=== PATIENT | male | born 1955 | race Caucasian/White ===

== ENCOUNTER 2018-10-21 13:13 | Emergency (ER) | payer SELFPAY ==
[~2018-10-21 13:13] MED LIST: ISOVUE-370 76%-LOCM 1 ML ONE
[2018-10-21] MEDS ORDERED: Propofol 1,000 MG/100 ML VIAL IV ONE (13:24)
[2018-10-21] MEDS ORDERED: Adacel (T-DAP) 0.5 ML SYRINGE ONE ×2 (13:25→13:28)
[2018-10-21] MEDS ORDERED: CEFAZOLIN 1 GM VIAL ONE (13:25)
[2018-10-21 13:30] LABS: Hemoglobin 15.1 g/dL (14.0-18.0); Mean Corpuscular HGB CONC 34.5 g/dL (32.0-36.0); Mean Corpuscular Hemoglobin 31.5 pg (27.0-31.0); Mean Corpuscular Volume 91.3 fL (78.0-98.0); Mean Platelet Volume 7.9 fL (7.4-10.4); Platelet Count 371 thou/uL (130-400); RBC Distribution Width 12.1 % (11.5-14.5); Red Blood Cell (RBC) Count 4.79 mill/uL (4.70-6.10)
[2018-10-21] MEDS ORDERED: Gentamicin 80 MG/2 ML VIAL ONE (13:30)
[2018-10-21 13:36] LABS: PTT 23.8 SEC (22.9-36.1); Prothrombin Time 13.3 SEC (12.0-14.7)
[2018-10-21] MEDS ORDERED: Fentanyl 100 MCG/2 ML VIAL ONE ×2 (13:39→14:04)
[2018-10-21 13:46] LABS: Band 11 % (5-11); Eosinophils 2 % (0-10); Lymphocytes 14 % (21-51); MDiff Complete? YES; Monocytes 6 % (0-10); Neutrophil 67 % (42-75); Platelet Morphology Comment Appears Adequate; RBC Morphology Normal
[2018-10-21 13:49] LABS: ALT (SGPT) 21 U/L (8-55); AST (SGOT) 20 U/L (5-34); Albumin 4.2 g/dL (3.4-4.8); Alkaline Phosphatase 74 U/L (40-150); Anion Gap 21 mmol/L (10-20); BUN (Urea Nitrogen) 17 mg/dL (8.4-25.7); Bilirubin, Total 0.7 mg/dL (0.2-1.2); Calc. Creatinine Clearance 0 mL/min (70-130); Calcium 9.8 mg/dL (7.8-10.44); Carbon Dioxide 16 mmol/L (23-31); Chloride 103 mmol/L (98-107); Estimated GFR-MDRD 46; Globulin 3.5 g/dL (2.4-3.5); Glucose 148 mg/dL (80-115); Potassium 4.3 mmol/L (3.5-5.1); Protein, Total 7.7 g/dL (5.8-8.1); Sodium 136 mmol/L (136-145)
--- NOTE | 2018-10-21 14:06 | RAD ---
XR Tib Fib Lt Leg 2 View INDICATION: Foreleg pain and injury FINDINGS: Bones: There is a comminuted, mildly displaced distal fibular shaft fracture with displacement of the distal fracture fragment medially 1 cortex width Joints: No acute abnormality. Soft tissues: There is soft tissue gas seen surrounding the distal left foreleg suspicious for an ope n injury and/or laceration IMPRESSION: Comminuted, mildly displaced distal fibular shaft fracture with extensive soft tissue gas surrounding the soft tissues of the distal left foreleg possibly related to laceration or open injury.
[2018-10-21] MEDS ORDERED: Vecuronium 10 MG VIAL ONE (14:07)
[2018-10-21] MEDS ORDERED: Rocuronium Bromide 10 MG/ML (10ML VIAL) ONE ×2 (14:07→16:48)
--- NOTE | 2018-10-21 14:10 | RAD ---
Chest AP view INDICATION: Level 1 trauma; large tree fell on left lower extremity with obvious deformity COMPARISON: None FINDINGS: Lungs:The lungs are clear Cardiac silhouette pulmonary vasculature:The cardiomediastinal silhouette appears within normal limit s. Pleural spaces:No pleural effusion or pneumothorax is demonstrated. Upper abdomen:Gastric catheter projecting the region of the gastric fundus Osseous structures: No acute osseous abnormality. Additional findings:ET tube tip is seen 3 cm from the level of the trixie. IMPRESSION: No acute cardiac pulmonary abnormality. ET tube and gastric catheter as above
--- NOTE | 2018-10-21 14:12 | RAD ---
AP view of the pelvis INDICATION: Level 1 trauma; tree fell on patient's left lower extremity COMPARISON: None. FINDINGS: Bones: No acute fracture or subluxation is evident. Bone mineralization appears within normal limits. Hips: Intact. SI joints and symphysis pubis: Normal appearing. Intrapelvic contents: Within normal limits. IMPRESSION: No acute osseous abnormality.
--- NOTE | 2018-10-21 14:20 | CT ---
CT BRAIN WITHOUT CONTRAST: Date: 10/21/18 HISTORY: Level I trauma. FINDINGS: No evidence of acute infarct, hemorrhage, midline shift, or abnormal extra-axial fluid collections ar e seen. There are changes of chronic small vessel ischemic disease in the periventricular white matte r. The ventricular size is appropriate and the basilar cisterns are patent. The bony calvarium is int act. There is mucosal disease in the paranasal sinuses. IMPRESSION: No CT evidence of acute intracranial process. Discussed over the telephone with ER physician, Dr. Rohan Nevarez, at 1402 hours. CODE CR. POS: [facility]
--- NOTE | 2018-10-21 14:20 | RAD ---
XR Foot Lt 2 View INDICATION: Level 1 trauma; tree fell on left lower extremity with obvious deformity COMPARISON: None. FINDINGS: Bones: There is a heavily comminuted fractures involving the base and shaft of the great toe metatars al extending into the Lisfranc joint. There is comminuted displaced fractures involving the cuneiforms. Joints: There is extensive fracture comminution and displacement centered around the Lisfranc joint. Lisfranc alignment: Malalignment. There is prominent dorsal angulation involving the comminuted fract ures of the mid foot. Soft tissues: There is extensive soft tissue gas involving the dorsal plantar aspect of the foot as w ell as the soft tissues of the distal foreleg suspicious for extensive laceration and injury IMPRESSION: Heavily comminuted left mid foot and forefoot fracture with extensive soft tissue injury. A CT of the left foot may be helpful for full delineation of the fractured bones within the left foot.
--- NOTE | 2018-10-21 14:22 | CT ---
CT CERVICAL SPINE WITH CORONAL AND SAGITTAL REFORMATIONS: Date: 10/21/18 HISTORY: Level I trauma. FINDINGS: Degenerative changes are seen, most prominent at C5-6 and C6-7 levels. No fracture, subluxation, or facet malalignment is seen. Endotracheal and nasogastric tubes are prese nt. This precludes satisfactory evaluation for prevertebral soft tissue swelling. Discussed over the telephone with ER physician, Dr. Rohan Nevarez, at 1407 hours. CODE CR. POS: [facility]
--- NOTE | 2018-10-21 14:30 | RAD ---
LEFT FEMUR 1 VIEW: Date: 10/21/18 HISTORY: Trauma, left lower extremity pain. FINDINGS/IMPRESSION: No definite bony abnormality is seen on this single view of the left femur. In the setting of trauma, at least 2 views should be obtained. POS: [facility]
--- NOTE | 2018-10-21 14:47 | CT ---
EXAM: CTA Angio Lwr Ext Lt W WO DATE: 10/21/2018 1:39 PM INDICATION: Level 1 trauma; tree fell on left foot with extensive left lower extremity injury COMPARISON: None. FINDIND reformatted images were constructed from the raw data. There is extensive soft tissue injury involving the posterior medial aspect of the mid to distal left foreleg with extensive soft tissue gas seen along the posterior medial aspect of the foreleg, anterior aspect of the distal foreleg as well as the dorsal and plantar aspects of the foot. There is complete occlusion of the posterior tibial artery at the level of the distal tibia, just abo ve the tibiotalar joint, with reconstitution seen just beyond the flexor retinaculum likely through collaterals from the peroneal artery. The anterior tibial artery is occluded distally, just above the level of the tibiotalar joint, withou t reconstitution of flow seen in the dorsalis pedis. The peroneal artery remains patent throughout its visualized course. There are heavily comminuted left foot fractures with extensive comminuted and displaced fractures in volving the middle cuneiform, lateral cuneiform and cuboid. There is a medially displaced proximal medial cuneiform fracture. There is a divergent type Lisfranc dislocation. There is a spiral comminuted fracture involving the great toe metatarsal shaft and proximal metaphysi s. There is a nondisplaced comminuted fourth metatarsal base fracture. There is a comminuted fracture involving the plantar base of the second and third metatarsal shafts. There is a comminuted mildly displaced medial navicular fracture. The calcaneus and talus are intact. The distal tibia appears intact. There is a partially visualized comminuted distal left fibular shaft fracture. IMPRESSION: 1. Complete occlusion of the distal right posterior tibial artery and right anterior tibial artery ju st above the ankle joint. There is reconstitution of flow within the right posterior tibial artery just distal to the flexor retinaculum. The peroneal artery appears patent. 2. Extensive midfoot and forefoot fractures with an eversion type Lisfranc dislocation. Distal fibula r shaft fracture. 3. Extensive soft tissue injury to the foreleg and foot. 4. Findings were called to Dr. Garza at 2:35 PM on October 21, 2018.
[2018-10-21 14:54] LABS: Actual Bicarbonate (HCO3a) 19.8 mEq/L (22-28); Base Excess (BEa) -5.5 mEq/L (-2.0 to +3.0); CO2 Tension 38.2 mmHg (35.0-45.0); Carboxyhemoglobin (COHb) 0.8 gm% (0.0-3.0); Hemoglobin (Hb) 13.6 g/dL (14.0-18.0); O2 Tension (PaO2) 115.9 mmHg (> 80.0); pH, Arterial 7.33 (7.35-7.45)
[2018-10-21 14:55] LABS: Analyzer IN Cardio ER; Calcium, Ionized 1.13 mmol/L (1.12-1.30); Potassium - ABG Lab 3.77 mmol/L (3.70-5.30); Puncture Site RRA
[2018-10-21] MEDS ORDERED: fentaNYL Citrate/PF 2,000 MCG in Sodium Chloride 0.9% 60 ML IV SCH (15:10)
--- NOTE | 2018-10-21 16:26 | HP ---
HISTORY OF PRESENT ILLNESS: This is a 63-year-old man, who was cutting down a tree post, which fell, landing to his left leg. The patient was temporarily pinned under the weight of the falling tree. He suffered no trauma to his head, chest, or abdomen. He suffered no loss of consciousness. Following extrication, the patient was transported by ground EMS to [facility] in [place], [place]. The patient had extensive deformity to the left [id number] leg with significant amount of soft tissue deformities. There was reportedly large amount of blood loss at the scene. Proximal tourniquet was applied by transport and EMS. The patient had received some ketamine and intravenous analgesics en route. Upon arrival to the emergency department, the patient was initially noted with [place] Coma Scale of 15, but became quite agitated and thrashing about with pain. It became necessary to electively intubate him to control his airway. His intubation was accomplished by the emergency medicine personnel. The patient received 20 mg of etomidate and 70 mg of rocuronium for intubation. At the time of my evaluation, the patient is now sedated on mechanical ventilator support. The tourniquet was removed. There was no active arterial bleeding at the wound sites. The patient had no other markers of trauma about his head, neck, torso, or spine. I will eventually speak with the patient's , who arrived shortly after initiation of the workup. PAST MEDICAL HISTORY: Unremarkable except for mild hypertension according to the patient's , for which the patient seeks no treatment. PAST SURGICAL HISTORY: He has had no major surgeries. SOCIAL HISTORY: He is , lives at home with his . He has no cigarette smoking or illicit drug abuse. He has occasionally consumed moderate amount of ethanol, that is actually in rare occasions according to the patient's . FAMILY HISTORY: The patient has no family history of diabetes mellitus, hypertension, heart disease, or cancer. PRE-HOSPITAL MEDICATION: None. ALLERGIES: THE PATIENT HAS NO KNOWN DRUG ALLERGIES. REVIEW OF SYSTEMS: Could not be obtained. The patient is sedated, pharmacologically paralyzed, on mechanical ventilator support. PHYSICAL EXAMINATION: GENERAL: This reveals a 63-year-old normally developed man, who is otherwise sedated. He was in no extremist, however, intubated for airway protection and to facilitate timely workup. VITAL SIGNS: Initial vital signs include blood pressure 131/85, pulse 112, respiratory rate 16, temperature 98.6 degrees Fahrenheit, and oxygen saturation 98% on 2 L by nasal cannula oxygen. His blood pressure has remained stable the entire time. HEENT: Normocephalic and atraumatic. Pupils are equal, round, and reactive to light bilaterally. He has no facial or cervical neck trauma. Palpation of the cervical spine reveals no step-offs or bony deformities. CHEST: Chest wall is stable. No gross deformities or step-offs are present. HEART: Reveals regular rate and rhythm. No murmurs or gallops auscultated. LUNGS: Clear to auscultation bilaterally. Breathing, regular and nonlabored. ABDOMEN: Soft, nontender, and nondistended. Liver and spleen nonpalpable below costal margin. PELVIS: Stable. No gross deformities or step-offs are present. GENITOURINARY: Reveals bilateral descended testicles with normal male genitalia. He has no ecchymosis or hematoma of the scrotum or perineum. Prior to placement of Alonso catheter, he had no blood in his urethral meatus. Once Alonso catheter was inserted, clear naveen urine was returned. MUSCULOSKELETAL: The patient was log-rolled to the side. Thoracic and lumbar spine palpated free of any abnormalities. EXTREMITIES: Reveal 2+ bilateral radial pulses. Right posterior tibial and dorsalis pedis palpable. Below the knee, left leg is markedly deformed medially with extensive soft tissue deformity that extends from approximately 6 cm below the knee to the level of the medial aspect of the left foot. The laceration is full thickness and goes down to unexposed medial aspect of the tibia. The right foot itself is markedly deformed. There is complete disruption of the mid left foot with full-thickness laceration of the medial aspect of the left foot. No significant active arterial bleeding is noted. There is extensive venous oozing about the wound. The injured left foot and leg were immobilized in a splint. PERTINENT LABORATORY FINDINGS: Include a CBC with 24,000 white blood cells, hemoglobin and hematocrit 15.1 and 43.7 respectively. Platelet count is 371,000. Metabolic profile; sodium 136, potassium is 4.3, chloride is 103, bicarb is 16, BUN 17, creatinine is 1.54, glucose is 148, total bilirubin 0.7, AST and ALT are 20 and 21 respectively. PTT and INR normal at 23.8 seconds and 1.0 respectively. I have personally reviewed all radiographic studies with internal radiologist. This includes an unremarkable left femur. CT scan of the brain and cervical spine revealed no acute pathology. CT of the left tibia and fibula is remarkable for comminuted mildly displaced distal third left fibular shaft fracture. X-ray of the left foot and ankle is remarkable for extensive comminuted left midfoot and forefoot fractures with dislocation. X- rays of the chest and pelvis are unremarkable for any acute pathology. CT angiography of the left leg is remarkable for complete occlusion of the distal right posterior tibial artery and right anterior tibial artery just above the ankle joint. There is, however, reconstitution of flow within the right posterior tibial artery distal to the flexor retinaculum. The peroneal artery is patent throughout its course. IMPRESSION: 1. Blunt trauma to the left leg by falling tree post. 2. Comminuted fracture of the distal third left fibular shaft. 3. Extensive and comminuted left mid and forefoot fractures. 4. Lower extremity vascular injury to the left dorsalis pedis as well as distal left posterior tibial arteries. 5. Extensive soft tissue deformities of the left leg below the knee extending to the medial aspect of the left foot 6.Acute Respiratory Failure PLAN: 1. Orthopedic surgical consultation with Dr. Álvarez, who evaluated the patient alongside with me. 2. Given the patient is going to require extensive soft tissue coverage, which might actually include free flap to cover the defect, if the left foot is deemed salvageable, it became prudent to transfer the patient to a level 1 trauma center where free flap procedures are really available. To this end, it was the family 's choice to be transferred to [facility] in [place] and transfer has been initiated at the time of this dictation. Total Critical Care time : 55 minutes Job ID: [id number] [facility]TD[facility]
--- NOTE | 2018-10-21 19:36 | CON ---
DATE OF CONSULTATION: 10/21/2018 HISTORY OF PRESENT ILLNESS: Mr. Cutler is a 63-year-old male, who is status post crush injury from a tree. The patient was seen by ER staff for combativeness, was intubated for control. I was consulted by Dr. Garza and Dr. Nevarez for evaluation of the patient's left lower extremity, a crush injury to his left foot. PAST MEDICAL HISTORY: Hypertension, no medications. PAST SURGICAL HISTORY: None. ALLERGIES: NO KNOWN DRUG ALLERGIES. MEDICATIONS: None. SOCIAL HISTORY: Quit smoking 10 years ago. Occasional alcohol. No illicit drug use. 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 PHYSICAL EXAMINATION: GENERAL: Intubated, resting in bed. EXTREMITIES: Left lower extremity shows a 5-cm laceration starting at the proximal third distally extending up to about 5 cm with degloving of the posterior skin and exposed tibia as well as a portion of the patient's posterior compartment. The vessel could be palpated within the wound. No exposed fibula on that side. He has laceration almost entire length of his foot right at the skin margin on the medial border of the plantar skin with fat exposed. He has crepitus in his mid foot, which is palpable, moveable medial cuneiform and has no dopperable DP distally. The patient has left foot and ankle and tibial films showed distal third fibular fracture and a left comminuted midfoot fracture dislocation with first metatarsal, medial and lateral cuneiforms as well as portion of cuboid fracture. The patient has subluxation of his tibiotalar joint on x-ray and appeared reduced navicular. His CT angio shows comminuted fractures as well as a patent peroneal, but DP and PT that did not go the past the zone of injury. IMPRESSION: 1. Status post crush injury. 2. Injury to dorsalis pedis and posterior tibial artery at the level of the ankle with intact peroneal artery. 3. Soft tissue injury in distal third with skin degloving concerning for viability of closure and need for potential free soft tissue coverage of the wound. 4. First metatarsal as well as cuneiform fractures with midfoot fracture dislocation. 5. Distal third tibia fracture. ASSESSMENT AND PLAN: After discussion with Dr. Garza as well as the ER staff, I felt the patient's best means of transport to high level of care for potential soft tissue coverage. I discussed with the patient's at length. An attempt would be made to salvage the foot if the bones could be reapproximated and the wound could be potentially covered. I discussed the potential long-term need for below-the- knee amputation becasue of the wound and blood supply. She understands this. The will be transferred out for care. After dressing, he was placed in a short-leg splint with posterior and U splint, with wet gauze in the lacerations. Job ID: [id number] [facility]
== END 2018-10-21 15:55 | disposition short-term general hospital (02) ==
LOC: ERS 13:13
DX: S82.832B Other fracture of upper and lower end of left fibula, initial encounter for open fracture type I or II (principal); S92.312B Displaced fracture of first metatarsal bone, left foot, initial encounter for open fracture; S92.345B Nondisplaced fracture of fourth metatarsal bone, left foot, initial encounter for open fracture; S92.332B Displaced fracture of third metatarsal bone, left foot, initial encounter for open fracture; S92.322B Displaced fracture of second metatarsal bone, left foot, initial encounter for open fracture; S92.252B Displaced fracture of navicular [scaphoid] of left foot, initial encounter for open fracture; I74.3 Embolism and thrombosis of arteries of the lower extremities; W20.8XXA Other cause of strike by thrown, projected or falling object, initial encounter
CPT/HCPCS: 29515; 31500; 36415; 51702; 70450; 71045; 72125; 72170; 80053; 82805; 85025; 85610; 85730; 86850; 86900; 86901; 90471; 90715; 94002; 96365; 96366; 96367; 96375; 96376; G0390; J0690; J1580; J2704; J3010; J3490; Q9966